=== PATIENT | female | born 1995 | race African-American/Black ===

== ENCOUNTER 2020-07-12 16:07 | Emergency (ER) | payer BC ==
[2020-07-12 17:31] VITALS: BP 130/82
[2020-07-12] MEDS ORDERED: IBUPROFEN 800 MG TAB PO ONE (17:36)
--- NOTE | 2020-07-12 19:08 | Emergency Department Report ---
ED Back Pain/Injury HPI - General Chief Complaint: Abdominal Pain Stated Complaint: GENERAL ILLNESS Time Seen by Provider: 07/12/20 17:25 Source: patient Limitations: No Limitations - History of Present Illness Initial Comments: CC: right flank pain HPI: THis is a healthy 24-year-old female without significant past medical history who presents with 3-4 days of right flank pain. Pain is sharp. Pain improved with ibuprofen and AZO. Prior to the flank pain, she did notice dysuria. Now she has fever chills. She has pain when she coughs or takes a deep breath. She denies productive cough. She denies sore throat, chest pain. She has mild headache. No known COVID-19 exposures. MD Complaint: back pain -: Gradual, days(s) (3-4) Similar Symptoms Previously: No Place: home Radiation: none Severity: moderate Severity scale (0 -10): 7 Quality: sharp Consistency: constant, other (Improved with ibuprofen) Improves With: medication (Ibuprofen) Worsens With: deep breaths/cough Associated Symptoms: fever/chills, other (Dysuria) - Related Data Previous Rx's Medication Instructions Recorded Last Taken Type Ibuprofen [Motrin 800 MG tab] 800 mg PO Q6H PRN #15 tablet 07/12/20 Unknown Rx Promethazine [Phenergan] 25 mg PO Q6HR PRN #10 tab 07/12/20 Unknown Rx cephALEXin [Keflex] 500 mg PO Q6HR 10 Days #40 capsule 07/12/20 Unknown Rx Allergies Allergy/AdvReac Type Severity Reaction Status Date / Time No Known Allergies Allergy Unverified 07/12/20 17:20 ED Review of Systems ROS: Stated complaint: GENERAL ILLNESS Other details as noted in HPI Comment: All other systems reviewed and negative Constitutional: chills, fever Respiratory: denies: cough, shortness of breath Cardiovascular: denies: chest pain Gastrointestinal: denies: abdominal pain, nausea, vomiting, diarrhea Genitourinary: dysuria Musculoskeletal: back pain ED Past Medical Hx - Past Medical History Previous Medical History?: No - Surgical History Past Surgical History?: Yes Additional Surgical History: HERNIA REPAIR - Social History Smoking Status: Never Smoker Substance Use Type: None - Medications Home Medications: Home Medications Medication Instructions Recorded Confirmed Last Taken Type Ibuprofen [Motrin 800 MG tab] 800 mg PO Q6H PRN #15 tablet 07/12/20 Unknown Rx Promethazine [Phenergan] 25 mg PO Q6HR PRN #10 tab 07/12/20 Unknown Rx cephALEXin [Keflex] 500 mg PO Q6HR 10 Days #40 capsule 07/12/20 Unknown Rx ED Physical Exam - General Limitations: No Limitations General appearance: alert, in no apparent distress - Head Head exam: Present: atraumatic, normocephalic - Eye Eye exam: Present: normal appearance - ENT ENT exam: Present: mucous membranes moist - Neck Neck exam: Present: normal inspection, full ROM - Respiratory Respiratory exam: Present: normal lung sounds bilaterally. Absent: respiratory distress, wheezes, rales, rhonchi - Cardiovascular Cardiovascular Exam: Present: normal rhythm, tachycardia, normal heart sounds. Absent: systolic murmur, diastolic murmur, rubs, gallop - GI/Abdominal GI/Abdominal exam: Present: soft, normal bowel sounds. Absent: distended, tenderness, guarding, rebound - Extremities Exam Extremities exam: Present: normal inspection - Back Exam Back exam: Present: CVA tenderness (R). Absent: muscle spasm, paraspinal tenderness, vertebral tenderness - Neurological Exam Neurological exam: Present: alert, oriented X3 - Psychiatric Psychiatric exam: Present: normal affect, normal mood - Skin Skin exam: Present: warm, dry, intact, normal color. Absent: rash ED Course Vital Signs 07/12/20 17:20 Temperature 100.1 F H Pulse Rate 114 H Respiratory 18 Rate Blood Pressure 130/82 O2 Sat by Pulse 98 Oximetry ED Medical Decision Making - Medical Decision Making Diagnosis: Acute viral nephritis, patient received IV ceftriaxone in the emergency department. She was prescribed cephalexin ibuprofen promethazine for home. Critical care attestation.: If time is entered above; I have spent that time in minutes in the direct care of this critically ill patient, excluding procedure time. ED Disposition Clinical Impression: Acute pyelonephritis Disposition: - TO HOME OR SELFCARE Is pt being admited?: No Condition: Stable Instructions: Pyelonephritis, Adult, [id number], Abdominal Pain (ED) Prescriptions: cephALEXin [Keflex] 500 mg PO Q6HR 10 Days #40 capsule Ibuprofen [Motrin 800 MG tab] 800 mg PO Q6H PRN #15 tablet PRN Reason: Pain , Severe (7-10) Promethazine [Phenergan] 25 mg PO Q6HR PRN #10 tab PRN Reason: Nausea
[2020-07-12 19:21] LABS: HCG Qualitative,Urine Negative (Negative)
[2020-07-12 19:25] LABS: Bacteria,Urine 1+ /HPF (Negative); Bilirubin,Urine NEG (Negative); Blood,Urine MOD (Negative); Color,Urine Yellow (Yellow); Mucus,Urine FEW /HPF; Protein,Urine <15 mg/dL mg/dL (Negative); Urobilinogen,Urine < 2.0 mg/dL (<2.0)
[2020-07-12] MEDS ORDERED: cefTRIAXone/NS 2 GM/100 ML 2 GM/100 ML BAG IV ONE (19:36)
--- NOTE | 2020-07-12 20:17 | XRay Report ---
CHEST 2 VIEWS INDICATION: fever flank pain. COMPARISON: None. FINDINGS: Support devices: None. Heart: Within normal limits. Lungs/Pleura: No acute air space or interstitial disease. No significant pleural effusion. IMPRESSION: No acute findings. Signer Name: Luis Eduardo Hernández MD Signed: 07/12/2020 8:12 PM Workstation Name: [id number]
== END 2020-07-12 21:03 | disposition home or self-care (01) ==
LOC: ED 16:07
DX: N10 Acute pyelonephritis (principal); Z79.899 Other long term (current) drug therapy; Z98.890 Other specified postprocedural states
CPT/HCPCS: 71046; 81001; 81025; 87086; 96365; 99284; J0696

== ENCOUNTER 2020-07-29 17:19 | Emergency (ER) | payer OTHER, BC ==
[2020-07-29 17:41] VITALS: BP 129/74
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
--- NOTE | 2020-07-29 18:48 | XRay Report ---
THORACOLUMBAR SPINE 2 VIEWS INDICATION / CLINICAL INFORMATION: pain. COMPARISON: Chest radiograph dated 07/12/20 FINDINGS: [id number] is limited to the thoracolumbar junction. The upper thoracic and lower lumbar spine is not included. VERTEBRAE: No acute fracture. No significant malalignment. DISC SPACES / FACET JOINTS:No significant abnormality. PARASPINAL SOFT TISSUES:No significant abnormality. ADDITIONAL FINDINGS: None. Signer Name: Alek Barnhart MD Signed: 07/29/2020 6:44 PM Workstation Name: [id number]
== END 2020-07-29 20:04 | disposition home or self-care (01) ==
LOC: ED 17:19
DX: S39.012A Strain of muscle, fascia and tendon of lower back, initial encounter (principal); Z98.890 Other specified postprocedural states; Z79.1 Long term (current) use of non-steroidal anti-inflammatories (NSAID); Z79.899 Other long term (current) drug therapy; V49.59XA Passenger injured in collision with other motor vehicles in traffic accident, initial encounter; Y93.89 Activity, other specified; Y92.410 Unspecified street and highway as the place of occurrence of the external cause; Y99.8 Other external cause status
CPT/HCPCS: 72080

== ENCOUNTER 2020-09-21 12:48 | Emergency (ER) | payer OTHER, BC ==
[2020-09-21] MEDS ORDERED: DIPHtheria,PERTUSSIS(ACELL),TETANUS VACCINE/PF 0.5 ML VIAL IM ONE (13:30)
[2020-09-21 13:36] VITALS: BP 107/74
--- NOTE | 2020-09-21 13:37 | Emergency Department Report ---
Chief Complaint: Eye Problems Stated Complaint: LT EYE INJURY Time Seen by Provider: 09/21/20 13:30 - HPI History of Present Illness: 24-year-old female presents with complaints of left eye pain today. Patient states she accidentally hit herself in the upper left eyelid with a screwdriver. She denies any pain in her eyeball, vision changes, dizziness or headache, or bleeding. She rates her current pain as a 2/10 in severity and states it hurts to touch. Patient unsure of her last tetanus vaccine, however states she does believe she got it when she was 17 and went to college. Small superficial abrasion noted to left upper eyelid on exam. EOMIs and no pain with eye movements. Patient does not require emergency treatment today. Offered tetanus vaccine update, however patient declines. Recommend OTC Neosporin 3 times a day for the next 3 days and icing. She is well-appearing and stable for discharge home. Patient to follow- up with primary care in 3 days. MSE screening note: Focused history and physical exam performed. Due to findings the following was ordered: ED Disposition for MSE Clinical Impression: Abrasion of left eyelid Qualifiers: Encounter type: initial encounter Qualified Code(s): S00.212A - Abrasion of left eyelid and periocular area, initial encounter Disposition: Z-07 MED SCREENING EXAM-LEFT Is pt being admited?: No Condition: Stable Instructions: Abrasion Referrals: [facility] [Provider Group] - 3-5 Days ED Review of Systems ROS: Stated complaint: LT EYE INJURY Other details as noted in HPI Eyes: denies: eye pain, eye discharge, vision change Skin: denies: change in color ED Physical Exam - General Limitations: No Limitations General appearance: alert, in no apparent distress - Head Head exam: Present: normocephalic - Eye Eye exam: Present: PERRL, EOMI, other (Mild swelling noted to left upper eyelid with small nonbleeding abrasion; no foreign bodies noted; no pain with eye movements). Absent: scleral icterus, conjunctival injection - Neck Neck exam: Present: normal inspection - Respiratory Respiratory exam: Absent: respiratory distress - Cardiovascular Cardiovascular Exam: Present: regular rate - Neurological Exam Neurological exam: Present: alert, oriented X3 - Psychiatric Psychiatric exam: Present: normal affect, normal mood - Skin Skin exam: Present: warm, dry, intact, normal color. Absent: rash
== END 2020-09-21 13:57 | disposition left against medical advice (07) ==
LOC: ED 12:48
DX: H57.12 Ocular pain, left eye (principal); Z53.21 Procedure and treatment not carried out due to patient leaving prior to being seen by health care provider